=== PATIENT | male | born 1960 | race Caucasian/White ===

== ENCOUNTER → 2022-06-10 | Outpatient (CLI) | payer OTHER ==
--- NOTE | 2022-06-10 12:17 | US ---
EXAMINATION TYPE: US prostate transrectal DATE OF EXAM: 06/10/2022 COMPARISON: NONE CLINICAL HISTORY: N40.1 BENIGN PROSTATIC HYPERPLASIA WITH NOCTURIA. Benign prostatic hyperplasia with nocturia. Abnormal PSA and difficulty urinating per order. This examination was performed using the transrectal probe. EXAM MEASUREMENTS: Gland Size: 6.2 x 6.0 x 3.7 cm. Volume: 72.41 ml Predicted PSA: 8.69 Actual PSA (if available): 2.9 Heterogeneous gland. No distinct nodule visualized in peripheral zone. IMPRESSION: Benign prostatic hypertrophy without suspicious lesion. Predicted PSA = volume x 0.12 ng/ml Calculated Volume = 0.5236 x L x W x H
== END | disposition home or self-care (01) ==
LOC: RADUSWWP 10:15
PROVIDERS: ATTEND Physician Assistant
DX: N40.1 Benign prostatic hyperplasia with lower urinary tract symptoms (principal); R35.1 Nocturia; R97.20 Elevated prostate specific antigen [PSA]
CPT/HCPCS: 76872